=== PATIENT | male | born 1965 | race Caucasian/White ===

== ENCOUNTER 2021-01-10 12:52 | Emergency (ER) | payer SELFPAY ==
[2021-01-10 13:23] VITALS: BP 136/79; PULSE 96; RESP 18; TEMP 37.2; O2SAT 97; BMI 27.2
--- NOTE | 2021-01-10 14:37 | ECG_ITS ---
[facility] Test Date: 2021-01-10 Pat Name: Fracisco Robert Department: Room: Gender: Male Brick M[employer] Hand: ts : 1965 Requested By: Phuong Gloria Order Number: [id number] Reading MD: DUARTE BHAT Measurements Intervals [place] Rate: 95 P: -53 NC: 139 QRS: 65 QRSD: 90 T: 25 QT: 368 QTc: 464 Interpretive Statements SINUS RHYTHM NONSPECIFIC T-WAVE ABNORMALITY No previous ECG available for comparison Electronically Signed On 01-12-2021 20:30:21 CDT by DUARTE BHAT [email or web address]
--- NOTE | 2021-01-10 14:37 | XR_ITS ---
WS: [id number] XR chest 1V portable [id number] REASON FOR EXAM: chest pain FINDINGS: The heart and thoracic aorta Calcified granulomatous changes in both hemithoraces. No acute pulmonary parenchymal or pleural abnormality. Linear fibrotic scarring in the left lung base . Severe degenerative spondylosis in the mid and lower thoracic spine with large osteophytes. Are unrem arkable. XR/XR chest 1V portable [id number] IMPRESSION: No acute chest abnormality.
[2021-01-10 16:54] LABS: Basophils # 0.1 10^3/uL (0.0-0.1); Basophils % 0.6 %; Eosinophils # 0.4 10^3/uL (0.0-0.8); Hematocrit 49.3 % (42.0-52.0); Hemoglobin 16.6 g/dL (11.7-16.6); Lymphocytes # 1.7 10^3/uL (0.8-4.8); Lymphocytes % 18.8 %; Mean Corpuscular HGB Conc 33.7 g/dL (30.0-36.0); Mean Corpuscular Hemoglobin 30.5 pg (28.0-34.0); Mean Corpuscular Volume 90.5 fL (80-94); Mean Platelet Volume 10.5 fL (7.4-10.4); Monocytes # 1.1 10^3/uL (0.2-0.9); Monocytes % 12.9 %; Neutrophils # 5.52 10^3/uL (1.8-7.7); Neutrophils % 62.4 %; Nucleated Red Blood Cells % 0 %; Platelet Count 272 10^3/cmm (130-400); Red Blood Count 5.45 10^6/uL (4.1-5.3); White Blood Count 8.8 10^3/uL (4.0-10.0)
[2021-01-10 17:06] LABS: Alanine Aminotransferase 22 U/L (0-41); Albumin Level 4.3 g/dL (3.5-5.2); Alkaline Phosphatase 83 IU/L (40-130); Anion Gap 16.1 (5-19); Aspartate Amino Transferase 17 U/L (0-40); Blood Urea Nitrogen 8 mg/dL (6-20); Calcium 9.2 mg/dL (8.5-10.5); Globulin 3.4 g/dL (1.3-4.6); Osmolality Calculated 291 mOsm/kg (285-295); Potassium 4.1 mmol/L (3.5-5.1); Sodium 136 mmol/L (136-145); Total Bilirubin 0.8 mg/dL (0.15-1.2); Total Protein 7.7 g/dL (6.6-8.7)
[2021-01-10 17:07] LABS: Troponin(5th) Baseline 7 ng/L (0-15)
[2021-01-10 17:42] LABS: Carbon Dioxide 30 mmol/L (22-29); Chloride 94 mmol/L (98-107); Glomerular Filtration Rate 139.4 mL/min (90-130); Glucose 295 mg/dL (65-115)
[2021-01-10 18:36] VITALS: BP 144/101; PULSE 88; RESP 20; O2SAT 100
[2021-01-10 18:38] VITALS: O2SAT 100
--- NOTE | 2021-01-10 18:39 | ED_ITS ---
HPI - Chest Pain General: Chief Complaint: Chest Pain Stated Complaint: TYPE II DIABETIC;CP,EXTREME FATIGUE;ELEV A1C Time Seen by Provider: 01/10/21 18:33 History of Present Illness: HPI narrative: Patient is a 55-year-old male who comes to the ED with chest pain. Patient says he has been having chronic chest pain for the past couple months. Denies any worsening or relieving factors. Chest pain has been constant for the past couple months. He says he has had an echo and a stress test done about 1 year ago. He also reports some fatigue as well and he has episodes of feeling a little lightheaded when he is at work. Patient says that for the past couple days he has been living out of his car on his property. His vehicle does not have air conditioning. Says he has been trying to drink a lot of water while he is at work and off work. While sleeping in his car he says he only gets a couple hours of sleep every night. Denies any nausea/vomiting , abdominal pain, shortness of breath, bladder or bowel symptoms. Associated symptoms: Deny abdominal pain, dyspnea, fever(s), nausea, palpitations or vomiting Review of Systems Const: Reports: fatigue; Denies: fever(s) or chills Eyes: Denies: change in vision or eye discomfort ENMT: Denies: throat pain, odynophagia, nasal discharge or nasal congestion Card: Reports: chest pain; Denies: palpitations, edema, swelling of feet/ankles, dyspnea on exertion or orthopnea Resp: Denies: dyspnea, productive cough or non-productive cough GI: Denies: abdominal pain, nausea, vomiting, diarrhea, constipation or hematochezia : Denies: flank pain, difficulty urinating, dysuria or hematuria Musc: Denies: neck pain, back pain or extremity swelling Skin/Breast: Denies: rash or new lesions Neuro: Denies: headache(s), numbness in extremities or weakness in extremities Physical Exam Const: COMMON NORMALS: no acute distress, patient oriented x3, healthy appearing and alert GENERAL APPEARANCE: cooperative and comfortable HENMT: COMMON NORMALS: normocephalic HEAD & SCALP: normocephalic MOUTH: moist mucous membranes abnormal Details: parched THROAT: posterior oropharynx normal and uvula midline Eye: COMMON NORMALS: Equal, round and reactive pupils present PUPIL: Yes Equal, round and reactive pupils present Neck/C-Spine: COMMON NORMALS: supple GENERAL: Yes normal visual inspection Resp: COMMON NORMALS: normal respiratory effort, No retractions, No use of accessory muscles and clear to auscultation bilaterally AUSCULTATION: clear to auscultation bilaterally Cardio: COMMON NORMALS: regular rate, regular rhythm, S1 normal heart sound present, S2 normal heart sound present, No gallops present (Cardio), No clicks present (Cardio), No murmurs present (Cardio) and Peripheral pulses 2+ throughout RATE: regular rate RHYTHM: regular rhythm HEART SOUNDS: S1 normal heart sound present and S2 normal heart sound present PERIPHERAL PULSES: Peripheral pulses 2+ throughout GI: COMMON NORMALS: Normal to inspection, nondistended, normoactive bowel sounds present, Soft to palpation, non-tender and no masses PALPATION: Yes Soft to palpation : COMMON NORMALS: Yes no CVA tenderness BLADDER/KIDNEY EXAM: Yes no CVA tenderness Back/Pelvis: COMMON NORMALS: no CVA tenderness Extremity: COMMON NORMALS: normal to inspection Neuro: COMMON NORMALS: patient oriented x3 and moves all extremities SENSORIUM/ORIENTATION: Yes alert Skin: GENERAL SKIN EXAM: dry skin Course Vital Signs: Vital signs: Vital Signs Temperature 99.0 F 01/10/21 13:23 Pulse Rate 78 01/10/21 20:23 Respiratory Rate 14 01/10/21 20:23 Blood Pressure 139/94 01/10/21 20:23 Pulse Oximetry 99 01/10/21 20:23 MDM - Chest Pain MDM Narrative: Medical decision making narrative: Patient is a 55-year-old male who comes to the ED with chronic chest pain and fatigue. Patient says he has been having chest pain for months. He states that he lives in his car on his property and his car has no A/C. He also says he has not had a good night of sleep for the last couple nights. Exam shows healthy appearing patient that is nontoxic but does have some dry mucous membranes. He is able to tolerate p.o. fluids and drink a couple cups of water while here in the ED. Labs were unremarkable and troponin negative. Chest x-ray showed no acute findings and EKG showed normal sinus rhythm with no ST segment elevation or depression seen. Patient's symptoms likely due to his current living condition. I talked with patient about possibly getting a hotel room or staying with friend or family and he felt that was a good idea and is going to try that out after discharge. Patient diagnosed with noncardiac chest pain and mild dehydration. He was told to follow-up with his PCP in 7 days for reevaluation. Return to ED precautions given. Patient understood and agreed with plan. Lab Data: Attestation: I reviewed the patient's lab results. Labs: Lab Results 01/10/21 01/10/21 01/10/21 Range/Units 16:26 16:26 16:26 WBC 8.8 (4.0-10.0) 10^3/ uL RBC 5.45 H (4.1-5.3) 10^6/u L Hgb 16.6 (11.7-16.6) g/dL Hct 49.3 (42.0-52.0) % MCV 90.5 (80-94) fL MCH 30.5 (28.0-34.0) pg MCHC 33.7 (30.0-36.0) g/dL RDW 13.0 (12.1-15.1) % Plt Count 272 (130-400) 10^3/c mm MPV 10.5 H (7.4-10.4) fL Neut % (Auto) 62.4 % Lymph % (Auto) 18.8 % [place] % (Auto) 12.9 % Eos % (Auto) 5.0 % Baso % (Auto) 0.6 % Neut # (Auto) 5.52 (1.8-7.7) 10^3/u L Lymph # (Auto) 1.7 (0.8-4.8) 10^3/u L [place] # (Auto) 1.1 H (0.2-0.9) 10^3/u L Eos # (Auto) 0.4 (0.0-0.8) 10^3/u L Baso # (Auto) 0.1 (0.0-0.1) 10^3/u L Nucleated RBC % (a uto) 0 % Nucleated RBCs # 0.0 /100WBC Sodium 136 (136-145) mmol/L Potassium 4.1 (3.5-5.1) mmol/L Chloride 94 L (98-107) mmol/L Carbon Dioxide 30 H (22-29) mmol/L Anion Gap 16.1 (5-19) BUN 8 (6-20) mg/dL Creatinine 0.6 L (0.7-1.2) mg/dL GFR Calculation 139.4 H (90-130) mL/min Glucose 295 H (65-115) mg/dL Calculated Osmolal ity 291 (285-295) mOsm/k g Calcium 9.2 (8.5-10.5) mg/dL Total Bilirubin 0.8 (0.15-1.2) mg/dL AST 17 (0-40) U/L ALT 22 (0-41) U/L Alkaline Phosphata se 83 (40-130) IU/L Troponin T Baselin e 7 (0-15) ng/L Troponin T 120 Min [place] (0-15) ng/L Delta Troponin T (0-10) ABS# Total Protein 7.7 (6.6-8.7) g/dL Albumin 4.3 (3.5-5.2) g/dL Globulin 3.4 (1.3-4.6) g/dL 01/10/21 Range/Units 18:55 WBC (4.0-10.0) 10^3/ uL RBC (4.1-5.3) 10^6/u L Hgb (11.7-16.6) g/dL Hct (42.0-52.0) % MCV (80-94) fL MCH (28.0-34.0) pg MCHC (30.0-36.0) g/dL RDW (12.1-15.1) % Plt Count (130-400) 10^3/c mm MPV (7.4-10.4) fL Neut % (Auto) % Lymph % (Auto) % [place] % (Auto) % Eos % (Auto) % Baso % (Auto) % Neut # (Auto) (1.8-7.7) 10^3/u L Lymph # (Auto) (0.8-4.8) 10^3/u L [place] # (Auto) (0.2-0.9) 10^3/u L Eos # (Auto) (0.0-0.8) 10^3/u L Baso # (Auto) (0.0-0.1) 10^3/u L Nucleated RBC % (a uto) % Nucleated RBCs # /100WBC Sodium (136-145) mmol/L Potassium (3.5-5.1) mmol/L Chloride (98-107) mmol/L Carbon Dioxide (22-29) mmol/L Anion Gap (5-19) BUN (6-20) mg/dL Creatinine (0.7-1.2) mg/dL GFR Calculation (90-130) mL/min Glucose (65-115) mg/dL Calculated Osmolal ity (285-295) mOsm/k g Calcium (8.5-10.5) mg/dL Total Bilirubin (0.15-1.2) mg/dL AST (0-40) U/L ALT (0-41) U/L Alkaline Phosphata se (40-130) IU/L Troponin T Baselin e (0-15) ng/L Troponin T 120 Min [place] 8.57 (0-15) ng/L Delta Troponin T 1.57 (0-10) ABS# Total Protein (6.6-8.7) g/dL Albumin (3.5-5.2) g/dL Globulin (1.3-4.6) g/dL Imaging Data^: CXR: Attestation: I personally reviewed and interpreted this imaging study as follows: Radiologist's impression: [address] [id number] ReportSigned Patient: Fracisco Robert #: [id number]: 1965Acct#:[id number]/Sex: 55 / MADM Date: 01/10/21Loc: ERRoom/Bed:Attending Dr: Ordering Provider/Ordering MD: Phuong Gloria Date of Service: 01/10/21 Procedure(s): XR chest 1V portable [id number] Accession Number(s): [id number] Report Number: [id number] WS: [id number] XR chest 1V portable [id number] REASON FOR EXAM: chest pain FINDINGS: The heart and thoracic aorta Calcified granulomatous changes in both hemithoraces. No acute pulmonary parenchymal or pleural abnormality. Linear fibrotic scarring in the left lung base. Severe degenerative spondylosis in the mid and lower thoracic spine with large osteophytes. Are unremarkable. XR/XR chest 1V portable [id number] IMPRESSION: No acute chest abnormality. Dictated By:Samuel Massey Jr MDSigned By:Samuel Massey Jr MDSigned Date/Time:01/10/21 1509DD/ 1508 EKG Data^: EKG 1: Attestation: I personally reviewed and interpreted this EKG as follows: EKG interpretation date: 01/10/21 Interpretation: Normal sinus rhythm, 95 bpm, no ST segment elevation or depression seen. Discharge Plan Discharge Patient Disposition: Home Clinical Impression: Chest pain, non-cardiac, Dehydration, mild Condition: Stable Prescriptions: No Action cyclobenzaprine 10 mg tablet 10 mg PO TID RF: 0 albuterol sulfate 90 mcg/actuation HFA aerosol inhaler 2 puff INHALATION PRN RF: 0 amitriptyline 25 mg tablet 25 mg PO BEDTIME RF: 0 metformin 1,000 mg tablet 1,000 mg PO BID RF: 0 Discharge Orders: Discharge ED (Routine); Ordered 01/10/21 Ordered By: Fracisco Hill Referrals: Mercedez Méndez FNP-C [Primary Care Provider] - Discharge Diet: Regular Discharge Activity: Resume usual activity Patient Instructions: Dehydration (ED), Noncardiac Chest Pain (ED) Activity Restrictions/Additional Instructions: Follow-up with medical provider as directed in 7 days for reevaluation. Continue taking all your home medications as prescribed. Make sure to drink plenty of fluids and stay hydrated. Getting your living situation sorted out and possibly staying at a hotel could be a good option to help you stay out of the heat and get some rest. Return to the ER or your medical provider if condition worsens. Please read and understand discharge instructions. Thank you for choosing [facility] for your healthcare needs today. Please realize this is an emergency room and that we are providing you with a medical screening exam and this may not be complete and all inclusive of all the testing and or work up that you may need to determine your ailment or severity of your illness. It is very important that you follow up as instructed or that you return to the Emergency Department should you have concerns or if your condition changes or worsens in any way. Coding Level of Care Code ED Eye Physician for g Fwd Exam Comprehensive
[2021-01-10 19:41] VITALS: BP 150/96; PULSE 74; RESP 14; O2SAT 100
[2021-01-10 19:47] LABS: Troponin 5 2HR 8.57 ng/L (0-15); Troponin 5 2HR Delta 1.57 ABS# (0-10)
[2021-01-10 20:22] VITALS: BP 139/94; PULSE 75; RESP 16; O2SAT 99
[2021-01-10 20:23] VITALS: BP 139/94; PULSE 78; RESP 14; O2SAT 99
== END 2021-01-10 20:25 | disposition home or self-care (01) ==
PROVIDERS: Physician Assistant; Emergency Provider Physician Assistant; PCP Nurse Practitioner Family
DX: R07.89 Other chest pain (principal); E86.0 Dehydration
CPT/HCPCS: 36415; 71045; 80053; 84484; 85025; 93005; 99284